=== PATIENT | female | born 1985 | race African-American/Black ===

== ENCOUNTER → 2017-02-06 | Outpatient (CLI) | payer OTHER ==
--- NOTE | 2017-02-07 09:20 | RAD ---
HISTORY: Mid back pain Study: 3 views of the thoracic spine. Comparison: None Findings: Grossly normal alignment of the thoracic spine. The disk space height is maintained. Vertebral body heights are grossly maintained. IMPRESSION: 1. Unremarkable examination of the thoracic spine. Reported By:
--- NOTE | 2017-02-07 09:23 | RAD ---
HISTORY: Low back pain Study: 3 views of the lumbar spine Comparison: None. Findings: Normal alignment without subluxation or listhesis. Disk heights are maintained. Vertebral body heig hts are normal. Sacroiliac joints are unremarkable. No evidence for acute fracture can be identifie d. IMPRESSION: 1. No acute abnormality of the lumbar spine. Reported By:
== END ==
LOC: RAD 17:41
PROVIDERS: ATTEND Nurse Practitioner Family
DX: M54.17 Radiculopathy, lumbosacral region (principal); M54.6 Pain in thoracic spine
CPT/HCPCS: 72072; 72110